=== PATIENT | male | born 1960 | race Caucasian/White ===

== ENCOUNTER → 2016-10-08 | Outpatient (CLI) | payer MEDICAID ==
[~2016-10-08] MED LIST: ANAPROX DS550 MG PO; DOXYCYCLINE100 M3 PO
[2016-10-08 08:30] LABS: HEMOGLOBIN 14.2 g/dl (14.0-18.0); MEAN CELL VOLUME 83.8 fl (80.0-94.0); MEAN CORPUSCULAR HGB CONC 34.6 g/dl (33.0-37.0); MEAN PLATELET VOLUME 8.7 fl (9.6-12.3); RED BLOOD COUNT 4.89 10*6/uL (4.50-5.90); RED CELL DISTRI WIDTH 12.9 % (0-14.5); WHITE BLOOD COUNT 4.1 10*3/uL (4.8-10.8)
[2016-10-08 09:00] LABS: ALKALINE PHOSPHATASE 66 U/L (45-117); BUN 17 mg/dl (7-24); CARBON DIOXIDE 27 mmol/L (21-32); CHLORIDE 106 mmol/L (98-107); CHOLESTEROL 173 mg/dL (<200); EST GLOM FILT AFRICAN AMERICAN > 60 ml/min; GLUCOSE 124 mg/dL (65-99); HDL CHOLESTEROL 40 mg/dl (40-60); LDL CHOLESTEROL 76 mg/dL (9-159); SGOT/AST 14 IU/L (3-35); SGPT/ALT 29 U/L (12-78); SODIUM 145 mmol/L (136-145); TRIGLYCERIDES 285 mg/dl (<150); VLDL CHOLESTEROL 57 mg/dL (6-40)
[2016-10-08 09:04] LABS: BILIRUBIN, TOTAL 0.3 mg/dl (0.2-1.0)
[2016-10-09 07:10] LABS: RHEUMATOID ARTHRITIS FACTOR <10.0 IU/mL (0.0-13.9)
[2016-10-09 20:07] LABS: LYME AB/TOTAL IMMUNOGLOBULINS <0.91 ISR (0.00-0.90)
== END | disposition home or self-care (01) ==
LOC: LAB 07:52
PROVIDERS: Family Medicine
DX: Z12.5 Encounter for screening for malignant neoplasm of prostate (principal); D17.39 Benign lipomatous neoplasm of skin and subcutaneous tissue of other sites; E55.9 Vitamin D deficiency, unspecified; E78.00 Pure hypercholesterolemia, unspecified; M25.50 Pain in unspecified joint; R22.2 Localized swelling, mass and lump, trunk; H00.016 Hordeolum externum left eye, unspecified eyelid

== ENCOUNTER → 2016-10-15 | Outpatient (CLI) | payer MEDICAID ==
[2016-10-15 09:16] LABS: HEMOGLOBIN A1c 5.9 % (4.8-5.6)
== END | disposition home or self-care (01) ==
LOC: LAB 08:13
PROVIDERS: Family Medicine
DX: E74.9 Disorder of carbohydrate metabolism, unspecified (principal); R73.09 Other abnormal glucose